=== PATIENT | female | born 1955 | race Caucasian/White ===

== ENCOUNTER 2017-07-18 11:13 | Emergency (ER) | payer OTHER ==
--- NOTE | 2017-07-18 12:04 | ER Document Report ---
ED Medical Screen (RME) - General Chief Complaint: Headache Stated Complaint: HEADACHE Time Seen by Provider: 07/18/17 11:48 TRAVEL OUTSIDE OF THE [place] IN LAST 30 DAYS: No - Related Data Allergies/Adverse Reactions: No Known Allergies Allergy (Verified 07/18/17 11:48) Past Medical History - Social History Chew tobacco use (# tins/day): No Frequency of alcohol use: Social Drug Abuse: None - Past Medical History Cardiac Medical History: Denies: Hx Heart Attack, Hx Hypertension Pulmonary Medical History: Denies: Hx Asthma Neurological Medical History: Denies: Hx Cerebrovascular Accident, Hx Seizures Renal/ Medical History: Denies: Hx Peritoneal Dialysis GI Medical History: Denies: Hx Hepatitis, Hx Hiatal Hernia, Hx Ulcer Infectious Medical History: Denies: Hx Hepatitis Past Surgical History: Denies: Hx Hysterectomy, Hx Mastectomy, Hx Open Heart Surgery, Hx Pacemaker Physical Exam - Vital signs Vitals: Temp Pulse Resp BP Pulse Ox 98.5 F 67 18 134/58 H 97 07/18/17 11:18 07/18/17 11:18 07/18/17 11:18 07/18/17 11:18 07/18/17 11:18 Course - Vital Signs Vital signs: Temp Pulse Resp BP Pulse Ox 98.5 F 67 18 134/58 H 97 07/18/17 11:18 07/18/17 11:18 07/18/17 11:18 07/18/17 11:18 07/18/17 11:18 Doctor's Discharge - Discharge Referrals: MERLY YOUNGER MD [Primary Care Provider] - Follow up as needed Scribe Documentation - Scribe Written by Jazmin:: Jazmin East, 07/18/2017 1201 acting as scribe for :: Kimani
[2017-07-18 12:34] LABS: INTERNATIONAL RATION (INR) 0.98; PROTHROMBIN TIME 13.4 SEC (11.4-15.4)
[2017-07-18 12:35] LABS: PARTIAL THROMBOPLASTIN TIME 25.7 SEC (23.5-35.8)
--- NOTE | 2017-07-18 12:39 | RADIOLOGY REPORT (SQ) ---
EXAM DESCRIPTION: CHEST SINGLE VIEW COMPLETED DATE/TIME: 07/18/2017 12:32 pm REASON FOR STUDY: aphasia last night, headache today COMPARISON: None. EXAM PARAMETERS: NUMBER OF VIEWS: One view. TECHNIQUE: Single frontal radiographic view of the chest acquired. RADIATION DOSE: NA LIMITATIONS: None. FINDINGS: LUNGS AND PLEURA: No opacities, masses or pneumothorax. No pleural effusion. MEDIASTINUM AND HILAR STRUCTURES: No masses. Contour normal. HEART AND VASCULAR STRUCTURES: Heart normal in size. Normal vasculature. BONES: No acute findings. HARDWARE: None in the chest. OTHER: No other significant finding. IMPRESSION: NO ACUTE RADIOGRAPHIC FINDING IN THE CHEST. TECHNICAL DOCUMENTATION: JOB ID: [id number] [employer]- All Rights Reserved Reading location - IP/workstation name: [email or web address]
[2017-07-18 12:41] LABS: ABSOLUTE BASOPHILS # (AUTO) 0.1 10^3/uL (0.0-0.2); ABSOLUTE EOSINOPHILS # (AUTO) 0.2 10^3/uL (0.0-0.6); ABSOLUTE LYMPHOCYTES (AUTO) 2.8 10^3/uL (0.5-4.7); ABSOLUTE MONOCYTES (AUTO) 0.4 10^3/uL (0.1-1.4); ABSOLUTE NEUT (AUTO) 4.7 10^3/uL (1.7-8.2); EOSINOPHILS % (AUTO) 2.3 % (0-6); HEMATOCRIT 41.8 % (36.0-47.0); HEMOGLOBIN 14.1 g/dL (12.0-15.5); LYMPHOCYTES % (AUTO) 34.6 % (13-45); MEAN CORPUSCULAR HEMOGLOBIN 30.5 pg (27.0-33.4); MEAN CORPUSCULAR HGB CONC 33.9 g/dL (32.0-36.0); MEAN CORPUSCULAR VOLUME 90 fl (80-97); MONOCYTES % (AUTO) 5.5 % (3-13); PLATELET COUNT 240 10^3/uL (150-450); RED BLOOD COUNT 4.63 10^6/uL (3.72-5.28); RED CELL DISTRIBUTION WIDTH 14.1 % (11.5-14.0); SEGMENTED NEUTROPHILS % (AUTO) 56.6 % (42-78); TOTAL CELLS COUNTED % (AUTO) 100 %; WHITE BLOOD COUNT 8.2 10^3/uL (4.0-10.5)
--- NOTE | 2017-07-18 12:52 | RADIOLOGY REPORT (SQ) ---
EXAM DESCRIPTION: CT HEAD WITHOUT COMPLETED DATE/TIME: 07/18/2017 12:36 pm REASON FOR STUDY: aphasia last night, headache today COMPARISON: None. TECHNIQUE: Axial images acquired through the brain without intravenous contrast. Images reviewed wi th bone, brain and subdural windows. Images stored on PACS. All CT scanners at this facility use dose modulation, iterative reconstruction, and/or weight based d osing when appropriate to reduce radiation dose to as low as reasonably achievable (ALARA). [facility]: Dose Right [facility]: CareDose [facility]: Dose Right [facility]: Teradose 4D [facility]: Smart zerved RADIATION DOSE: CT Rad equipment meets quality standard of care and radiation dose reduction techniq ues were employed. CTDIvol: 53.2 mGy. DLP: 1070 mGy-cm. mGy. LIMITATIONS: None. FINDINGS: VENTRICLES: Normal size and contour. CEREBRUM: No masses. No hemorrhage. No midline shift. No evidence for acute infarction. Normal gra y/white matter differentiation. No areas of low density in the white matter. CEREBELLUM: No masses. No hemorrhage. No alteration of density. No evidence for acute infarction. EXTRAAXIAL SPACES: No fluid collections. No masses. ORBITS AND GLOBE: No intra- or extraconal masses. Normal contour of globe without masses. CALVARIUM: No fracture. PARANASAL SINUSES: No fluid or mucosal thickening. SOFT TISSUES: No mass or hematoma. OTHER: No other significant finding. IMPRESSION: NORMAL BRAIN CT WITHOUT CONTRAST. EVIDENCE OF ACUTE STROKE: NO. COMMENT: Quality ID # [id number]: Final reports with documentation of one or more dose reduction techniques (e.g., Automated exposure control, adjustment of the mA and/or kV according to patient size, use of iterative reconstruction technique) TECHNICAL DOCUMENTATION: JOB ID: [id number] [employer]- All Rights Reserved Reading location - IP/workstation name: [email or web address]
[2017-07-18 13:02] LABS: ALANINE AMINOTRANSFERASE 31 U/L (9-52); ALBUMIN 4.1 g/dL (3.5-5.0); ALKALINE PHOSPHATASE 117 U/L (38-126); ANION GAP 11 (5-19); ASPARTATE AMINO TRANSFERASE 24 U/L (14-36); BILIRUBIN,DIRECT 0.3 mg/dL (0.0-0.4); BILIRUBIN,TOTAL 0.4 mg/dL (0.2-1.3); BLOOD UREA NITROGEN 16 mg/dL (7-20); CALCIUM 10.2 mg/dL (8.4-10.2); CARBON DIOXIDE 25 mmol/L (22-30); CHLORIDE 108 mmol/L (98-107); CREATINE KINASE 120 U/L (30-135); GLUCOSE 100 mg/dL (75-110); POTASSIUM 4.5 mmol/L (3.6-5.0); SODIUM 144.1 mmol/L (137-145)
[2017-07-18 13:14] LABS: CREATINE KINASE MB 1.92 ng/mL (<4.55)
[2017-07-18 13:15] LABS: TROPONIN I < 0.012 ng/mL
--- NOTE | 2017-07-18 14:23 | ER Document Report ---
ED General - General Mode of Arrival: Ambulatory Information source: Patient TRAVEL OUTSIDE OF THE [place] IN LAST 30 DAYS: No <DILCIA OTT - Last Filed: 07/18/17 14:37> <SHIN ELLIOTT - Last Filed: 07/18/17 21:28> - General Chief Complaint: Headache Stated Complaint: HEADACHE Time Seen by Provider: 07/18/17 11:48 Notes: Patient is a 62-year-old female who presents to the emergency department today with complaints of a "probable TIA" last night. Patient states that last night her daughter, who is a nurse, called her and she was unable to answer a simple question as she could not find the words she wanted to say. Daughter at bedside does endorse difficulty with word finding but states that the patient did not have slurred speech, weakness, or headache at that time. Patient does admit increased stress after losing her recently. Patient states this morning when she woke up she did have a headache. Patient mentions that every once in a while she gets a sensation that she is looking through a kaleidoscope which has been going on for quite some time and she has seen her eye doctor for this. Patient denies any slurred speech or usage of blood thinning medications. (DILCIA OTT) On further conversation the patient states the headache was not thunderclap, it was not sudden in onset and it did not wake her up from sleep, she noticed it was present shortly after she woke up. The difficulty with word finding was having difficulty finding the specific names of stores to describe where she wanted her daughter to buy sand. It did not affect her conversation in any other way. (SHIN ELLIOTT) - Related Data Allergies/Adverse Reactions: No Known Allergies Allergy (Verified 07/18/17 11:48) Past Medical History - General Information source: Patient - Social History Smoking Status: Current Every Day Smoker Cigarette use (# per day): Yes Chew tobacco use (# tins/day): No Frequency of alcohol use: Social Drug Abuse: None Lives with: Family Family History: Reviewed & Not Pertinent Patient has suicidal ideation: No Patient has homicidal ideation: No - Medical History Medical History: Negative Surgical Hx: Negative <DILCIA OTT - Last Filed: 07/18/17 14:37> Review of Systems - Review of Systems Constitutional: No symptoms reported EENT: No symptoms reported Cardiovascular: No symptoms reported Respiratory: No symptoms reported Gastrointestinal: No symptoms reported Genitourinary: No symptoms reported Female Genitourinary: No symptoms reported Musculoskeletal: No symptoms reported Skin: No symptoms reported Hematologic/Lymphatic: No symptoms reported Neurological/Psychological: See HPI, Headaches - difficulty with word finding, Other - denies slurred speech -: Yes All other systems reviewed and negative <DILCIA OTT - Last Filed: 07/18/17 14:37> Physical Exam <DILCIA OTT - Last Filed: 07/18/17 14:37> <SHIN ELLIOTT - Last Filed: 07/18/17 21:28> - Vital signs Vitals: Temp Pulse Resp BP Pulse Ox 98.5 F 67 18 134/58 H 97 07/18/17 11:18 07/18/17 11:18 07/18/17 11:18 07/18/17 11:18 07/18/17 11:18 - Notes Notes: PHYSICAL EXAM GENERAL: Alert, interacts well. No acute distress. HEAD: Normocephalic, atraumatic. EYES: Pupils equal, round, and reactive to light. Extraocular movements intact. ENT: Oral mucosa moist, tongue midline. NECK: Full range of motion. Supple. Trachea midline. LUNGS: Clear to auscultation bilaterally, no wheezes, rales, or rhonchi. No respiratory distress. HEART: Regular rate and rhythm. No murmurs, gallops, or rubs. ABDOMEN: Soft, non-tender. Non-distended. Bowel sounds present in all 4 quadrants. No guarding, rigidity, or rebound. EXTREMITIES: Moves all 4 extremities spontaneously. No edema, radial and dorsalis pedis pulses 2/4 bilaterally. No cyanosis. NEUROLOGICAL: Alert and oriented x3. Normal speech. Cranial nerves II through XII grossly intact bilaterally. PSYCH: Normal affect, normal mood. SKIN: Warm, dry, normal turgor. No rashes or lesions noted. (DILCIA OTT) Course - Laboratory Result Diagrams: 07/18/17 12:18 07/18/17 12:18 <DILCIA OTT - Last Filed: 07/18/17 14:37> - Laboratory Result Diagrams: 07/18/17 12:18 07/18/17 12:18 <SHIN ELLIOTT - Last Filed: 07/18/17 21:28> - Re-evaluation Re-evalutation: 07/18/17 14:23 No signs of stroke remaining, CBC unremarkable, coags normal, CMP unremarkable, cardiac enzymes negative 1, CT scan of the head does not reveal any bleeding, chest x-ray does not reveal any acute process. EKG is nonischemic, patient has been on the monitor since being placed in a room and there has been no ectopy or irregular heartbeat that would increase the risk of. Discussed with patient and daughter that since we are doing the CT scan within 6 hours of onset of headache that there is a 99.8% chance that we are not missing any intracranial hemorrhage, they are aware of the one in 500 chance that we might be missing an intracranial hemorrhage and after advising them of the risks and benefits of a lumbar puncture to diagnose a subarachnoid hemorrhage we have jointly decided that the patient will not have a lumbar puncture at this time. Patient will return should she develop any recurrent neurologic symptoms including slurred speech, difficulty word finding, numbness, tingling, weakness or blurred vision. Patient has a follow-up appointment with a primary care physician on the . They will set her up for carotid Dopplers, possible MRI and other necessary workup for a TIA. Patient will be discharged to home. 07/18/17 14:25 Patient declines any medication for headache. States the Excedrin she took earlier has made her feel much better although is not completely resolved. ( SHIN ELLIOTT) - Vital Signs Vital signs: Temp Pulse Resp BP Pulse Ox 97.6 F 56 L 16 137/48 H 98 07/18/17 14:41 07/18/17 14:41 07/18/17 14:41 07/18/17 14:41 07/18/17 14:41 - Laboratory Laboratory results interpreted by me: 07/18/17 07/18/17 12:18 12:18 RDW 14.1 H Chloride 108 H - EKG Interpretation by Me Additional EKG results interpreted by me: 07/18/17 14:25 EKG shows sinus rhythm at a rate of 65, normal axis, normal intervals, no ST segment elevations or depressions, there are nonspecific isolated T-wave inversions in lead III per my interpretation. (SHIN ELLIOTT) Discharge <DILCIA OTT - Last Filed: 07/18/17 14:37> <SHIN ELLIOTT - Last Filed: 07/18/17 21:28> - Discharge Clinical Impression: Word finding difficulty Headache Qualifiers: Headache type: unspecified Headache chronicity pattern: acute headache Intractability: not intractable Qualified Code(s): R51 - Headache Condition: Good Disposition: HOME, SELF-CARE Additional Instructions: Today your CAT scan did not show any sign of bleeding in your brain. There is a very small chance, approximately 1 and 500, that we are missing bleeding. We would need to do a lumbar puncture to diagnose this. Today after discussing the risks and benefits you have declined a lumbar puncture. If your headache worsens, if you develop any neurologic symptoms including difficulty with word finding that returns, difficulty with speech, numbness, tingling, weakness or blurred vision please return to the emergency department immediately. Please keep your follow-up appointment on the for further workup for a possible TIA. Referrals: MERLY YOUNGER MD [Primary Care Provider] - Follow up as needed Scribe Attestation: 07/18/17 21:28 I personally performed the services described in the documentation, reviewed and edited the documentation which was dictated to the scribe in my presence, and it accurately records my words and actions. (SHIN ELLIOTT) Scribe Documentation - Scribe Written by Jazmin:: Jazmin East, 07/18/2017 1516 acting as scribe for :: Kimani <DILCIA OTT - Last Filed: 07/18/17 14:37>
[2017-07-18 14:42] VITALS: BP 137/48
--- NOTE | 2017-07-18 22:53 | EKG REPORT ---
SEVERITY:- NORMAL ECG - SINUS RHYTHM : Confirmed by: Darlene Buckner MD 18-Jul-2017 22:53:12
== END 2017-07-18 14:53 | disposition home or self-care (01) ==
LOC: ER 11:13
DX: R51 Headache (principal); R29.818 Other symptoms and signs involving the nervous system; H53.8 Other visual disturbances; F17.210 Nicotine dependence, cigarettes, uncomplicated
CPT/HCPCS: 36415; 70450; 71045; 80053; 82550; 82553; 84484; 85025; 85610; 85730; 93005; 93010; 99285

== ENCOUNTER 2018-07-25 13:27 | Emergency (ER) | payer OTHER ==
[2018-07-25 13:37] VITALS: BP 143/75
[2018-07-25] MEDS ORDERED: LIDOCAINE 5% (700 MG) TRANSDERMAL ADH..PATCH TP ONE (15:50)
[2018-07-25] MEDS ORDERED: KETOROLAC TROMETHAMINE 60 MG/2 ML SDV IM ONE (15:50)
[2018-07-25] MEDS ORDERED: ACETAMINOPHEN 325 MG TABLET PO ONE (15:51)
[2018-07-25] MEDS ORDERED: DEXAMETHASONE SOD PHOS INJ 10 MG/1 ML VIAL IM ONE (15:52)
--- NOTE | 2018-07-25 15:58 | ER Document Report ---
HPI - HPI Patient complains to provider of: L shoulder pain Time Seen by Provider: 07/25/18 15:33 Pain Level: 4 Context: Overall healthy 63-year-old female with presumptive rheumatoid arthritis based on her history presents to the emergency department with acute left shoulder pain for 2 days. She said it started about midnight 2 nights ago woke her from her sleep she stayed away could not go back to sleep. She has then had significant pain and acute tenderness over the medial and posterior heads of the deltoid. No trauma, no evidence of infection, no fevers. She said about 12 years ago her right shoulder was "[id number]" and her right knee was "[id number]". She does have limited range of motion and her shoulder is not completely immobile. She denies fever, chills, acute weakness/numbness/paresthesias/paralysis of any of her extremities, denies acute shortness of breath or chest pain, denies nausea/vomiting/diarrhea/constipation, denies abdominal pain. No other complaints - CONSTITUTIONAL Constitutional: DENIES: Fever, Chills - EENT EENT: DENIES: Sore Throat, Ear Pain, Eye problems - NEURO Neurology: DENIES: Headache, Weakness, Vision blurred, Dizzinesss / Vertigo - CARDIOVASCULAR Cardiovascular: DENIES: Chest pain - RESPIRATORY Respiratory: DENIES: Trouble Breathing, Coughing - GASTROINTESTINAL Gastrointestinal: DENIES: Abdominal Pain, Black / Bloody Stools - URINARY Urinary: DENIES: Dysuria, Urgency, Frequency - MUSCULOSKELETAL Musculoskeletal: REPORTS: Extremity pain Past Medical History - Social History Smoking Status: Current Every Day Smoker Chew tobacco use (# tins/day): No Frequency of alcohol use: None Drug Abuse: None Family History: Reviewed & Not Pertinent Patient has suicidal ideation: No Patient has homicidal ideation: No - Past Medical History Cardiac Medical History: Denies: Hx Heart Attack, Hx Hypertension Pulmonary Medical History: Denies: Hx Asthma Neurological Medical History: Denies: Hx Cerebrovascular Accident, Hx Seizures Renal/ Medical History: Denies: Hx Peritoneal Dialysis GI Medical History: Denies: Hx Hepatitis, Hx Hiatal Hernia, Hx Ulcer Infectious Medical History: Denies: Hx Hepatitis Past Surgical History: Reports: Hx Cholecystectomy, Hx Orthopedic Surgery - back, Hx Tonsillectomy. Denies: Hx Hysterectomy, Hx Mastectomy, Hx Open Heart Surgery, Hx Pacemaker Vertical Provider Document - CONSTITUTIONAL Notes: PHYSICAL EXAMINATION: Reviewed vital signs and charting by RN GENERAL: Alert, interacts well. No acute distress. HEAD: Normocephalic, atraumatic. EYES: Pupils equal and round. Extraocular movements intact. ENT: Oral mucosa moist, tongue midline. NECK: Full range of motion. Trachea midline. LUNGS: Clear to auscultation bilaterally, no wheezes, rales, or rhonchi. No respiratory distress. HEART: Regular rate and rhythm. No murmur ABDOMEN: soft, non-tender. No distention. Bowel sounds present EXTREMITIES: Left shoulder exam significantly limited secondary to pain. 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 PSYCH: Normal affect, normal mood. SKIN: Warm, dry, normal turgor. No rashes or lesions noted. - INFECTION CONTROL TRAVEL OUTSIDE OF THE [place] IN LAST 30 DAYS: No Course - Re-evaluation Re-evalutation: 07/25/18 15:56 Plan is to get a x-ray of the left shoulder to look at baseline status as this is a new acute injury. We will give her Toradol IM, dexamethasone IM, Lidoderm patch, Tylenol 975 mg. 07/25/18 16:51 X-ray negative for dislocation or fracture. Patient is stable for discharge given return precautions. - Vital Signs Vital signs: Temp Pulse Resp BP Pulse Ox 98.2 F 74 16 143/75 H 96 07/25/18 13:36 07/25/18 13:36 07/25/18 13:36 07/25/18 13:36 07/25/18 13:36 Discharge - Discharge Clinical Impression: Injury of left shoulder Qualifiers: Encounter type: initial encounter Qualified Code(s): S49.92XA - Unspecified injury of left shoulder and upper arm, initial encounter Condition: Good Disposition: HOME, SELF-CARE Additional Instructions: You were seen in emergency department this afternoon for left shoulder injury. Imaging did not show anything concerning for dislocation or fracture. Is unclear why you are having this pain but it is most likely due to soft tissue injury. Because you are off for the next 4 days try to rest and do gentle range of motion exercises to prevent a frozen shoulder. He received a shot of Toradol, a steroid shot, and a Lidoderm patch here in emergency department to help ease pain. You can continue to a heating pad every couple hours as tolerated. I have also given you a prescription for short course of muscle relaxer called Flexeril. Please take it as needed at bedtime. Please follow-up with your primary doctor next week if your symptoms do not start to improve. If you develop paralysis of the arm, complete numbness, tingling, your fingertips or hand starts to turn blue or black, you develop acute shortness of breath or severe chest pain please immediately return to the emergency department for evaluation. Prescriptions: Cyclobenzaprine HCl [Flexeril 5 mg Tablet] 1 - 2 tab PO TID PRN #15 tablet PRN Reason: Referrals: MERLY YOUNGER MD [Primary Care Provider] - Follow up as needed
--- NOTE | 2018-07-25 16:25 | RADIOLOGY REPORT (SQ) ---
EXAM DESCRIPTION: SHOULDER LEFT 2 OR MORE VIEWS COMPLETED DATE/TIME: 07/25/2018 4:17 pm REASON FOR STUDY: Acute left shoulder pain COMPARISON: None. NUMBER OF VIEWS: Three views. TECHNIQUE: Internal rotation, external rotation, and Y view images acquired of the left shoulder. LIMITATIONS: None. FINDINGS: MINERALIZATION: Normal. BONES: No acute fracture or dislocation. No worrisome bone lesions. JOINTS: No dislocation. VISUALIZED LUNGS AND RIBS: No pneumothorax. No rib fracture. SOFT TISSUES: No radiopaque foreign body. OTHER: No other significant finding. IMPRESSION: NEGATIVE STUDY OF THE LEFT SHOULDER. NO RADIOGRAPHIC EVIDENCE OF ACUTE INJURY. TECHNICAL DOCUMENTATION: JOB ID: [id number] [employer]- All Rights Reserved Reading location - IP/workstation name: [email or web address]
== END 2018-07-25 17:52 | disposition home or self-care (01) ==
LOC: ER 13:27
DX: S49.92XA Unspecified injury of left shoulder and upper arm, initial encounter (principal); M25.512 Pain in left shoulder; X58.XXXA Exposure to other specified factors, initial encounter; F17.200 Nicotine dependence, unspecified, uncomplicated
CPT/HCPCS: 99283; 96372; 73030; J1885; J1100